=== PATIENT | female | born 1955 | race Caucasian/White ===

== ENCOUNTER 2023-12-23 08:48 | Outpatient (CLI) | payer MEDICARE, OTHER ==
[2023-12-23 10:43] LABS: #Basophils 0.1 10x3/uL (0.0-0.2); #Eosinphils 0.2 10x3/uL (0.0-0.5); #Monocytes 0.9 10x3/uL (0.0-1.1); #Neutrophils 5.4 10x3/uL (1.5-8.4); %Basophils 0.9 % (0.0-2.0); %Eosinophils 2.3 % (0.0-6.0); %Lymphocytes 23.3 % (18.0-47.0); %Neutrophils 63.3 % (40.0-75.0); Hematocrit 45.5 % (34.9-44.5); Hemoglobin 15.5 g/dL (12.0-15.5); Mean Corpuscular HGB CONC 34.1 g/dL (32.0-36.0); Mean Corpuscular Hemoglobin 29.6 pg (27.0-33.0); Mean Platelet Volume 9.9 fl (7.4-10.4); Platelet Count 236 10x3/uL (150-450); RBC Distribution Width 13.5 % (11.5-14.5); Red Blood Cell (RBC) Count 5.23 10x6/uL (3.90-5.03); White Blood Cell (WBC) Count 8.5 10x3/uL (3.5-10.5)
[2023-12-23 11:01] LABS: Prothrombin Time 10.6 sec (9.5-12.1)
[2023-12-23 11:23] LABS: Anion Gap 16 mmol/L (10-20); BUN (Urea Nitrogen) 19 mg/dL (9.8-20.1); Calc. Creatinine Clearance 0 mL/min (70-130); Calcium 9.6 mg/dL (7.8-10.44); Carbon Dioxide 23 mmol/L (23-31); Chloride 105 mmol/L (98-107); Estimated GFR 85; Glucose 90 mg/dL (80-115); Potassium 4.5 mmol/L (3.5-5.1); Sodium 139 mmol/L (136-145)
== END 2023-12-23 08:49 | disposition home or self-care (01) ==
LOC: LABBT 08:48
PROVIDERS: ATTEND Orthopaedic Surgery
DX: Z01.818 Encounter for other preprocedural examination (principal); M16.11 Unilateral primary osteoarthritis, right hip; Z96.641 Presence of right artificial hip joint
CPT/HCPCS: 80048; 85025; 85610; 87081; 93005; 93010

== ENCOUNTER 2023-12-28 07:57 | Observation (INO) | payer MEDICARE, OTHER ==
[2023-12-23 09:08] VITALS: BMI 37.3
[2023-12-28] MEDS ORDERED: Sodium Chloride 0.9% 100 ML ONE ×2 (08:24→10:59)
[2023-12-28] MEDS ORDERED: Tranexamic Acid 1,000 MG/10 ML VIAL ONE (08:24)
[2023-12-28] MEDS ORDERED: Vancomycin (BATCH) 1.5 GM/300 ML BAG ONE (09:04)
[2023-12-28] MEDS ORDERED: PROPOFOL 40 ML ONE (09:07)
[2023-12-28] MEDS ORDERED: Midazolam HCl 2 mg/2 ml Vial ONE ×3 (09:30→12:37)
[2023-12-28] MEDS ORDERED: Bupivacaine PF 0.5% 30 ML VIAL ONE ×2 (09:30→10:59)
[2023-12-28] MEDS ORDERED: fentaNYL 50 mcg/mL 1 mL Vial ONE ×3 (09:30→12:35)
[2023-12-28] MEDS ORDERED: diphenhydrAMINE 25 MG CAP PO PRN (10:38)
[2023-12-28] MEDS ORDERED: fentaNYL 50 mcg/mL 1 mL Vial SLOW IVP PRN (10:38)
[2023-12-28] MEDS ORDERED: Promethazine HCl 25 MG/ML VIAL IM PRN ×2 (10:38→12:14)
[2023-12-28] MEDS ORDERED: Zolpidem Tartrate 5 MG TAB PO PRN (10:38)
[2023-12-28] MEDS ORDERED: Acetaminophen 325 MG TAB PO PRN (10:38)
[2023-12-28] MEDS ORDERED: Propofol 500 MG/50 ML VIAL ONE (10:41)
[2023-12-28] MEDS ORDERED: CEFAZOLIN 2 GM VIAL ONE (10:59)
[2023-12-28] MEDS ORDERED: Ondansetron HCl/PF 4 MG/2 ML Vial IVP PRN (12:14)
[2023-12-28] MEDS ORDERED: Ketorolac Tromethamine 30 MG (1 mL) VIAL ONE (13:24)
[2023-12-28] MEDS: Ketorolac Tromethamine 30 MG (1 mL) VIAL IVP SCH (13:42)
[2023-12-28] MEDS: Sodium Chloride 0.9% 1,000 ML IV SCH (15:06)
[2023-12-28] MEDS: Ondansetron PF 4 MG/2 ML Vial IVP PRN (16:59)
[2023-12-28] MEDS: CEFAZOLIN 2 GM in Sodium Chloride 0.9% 100 ML IVPB SCH (18:06)
[2023-12-28] MEDS: Aspirin 81 mg Enteric Coated Tablet PO SCH (20:02)
[2023-12-28] MEDS: traMADol HCl 50 MG TAB PO PRN (20:02)
[2023-12-28] MEDS: Senokot S 8.6-50 MG TAB PO SCH (20:02)
[2023-12-28] MEDS: Ferrous Gluconate 324 MG TAB PO SCH (20:02)
[2023-12-29 04:54] VITALS: BP 118/73; TEMP 98.1
[2023-12-29 05:02] LABS: Hematocrit 39.2 % (36.0-47.0); Hemoglobin 13.2 g/dL (12.0-16.0); Mean Corpuscular HGB CONC 33.7 g/dL (32.0-36.0); Mean Corpuscular Hemoglobin 29.9 pg (27.0-31.0); Mean Corpuscular Volume 88.7 fl (78.0-98.0); Mean Platelet Volume 9.9 fL (7.4-10.4); Platelet Count 188 10x3/uL (130-400); RBC Distribution Width 13.5 % (11.5-14.5); Red Blood Cell (RBC) Count 4.42 mill/uL (4.20-5.40); White Blood Cell (WBC) Count 9.7 10x3/uL (4.8-10.8)
[2023-12-29] MEDS: Multivitamin W/ Minerals 1 TAB PO SCH (08:27)
[2023-12-29] MEDS: traMADol HCl 50 MG TAB PO PRN (08:27)
[2023-12-29] MEDS: Cholecalciferol 1,000 UNITS (25 MCG) TAB PO SCH (08:27)
[2023-12-29] MEDS ORDERED: Cholecalciferol 1,000 UNITS (25 MCG) TAB PO SCH (09:00)
== END 2023-12-29 11:36 | disposition home or self-care (01) ==
LOC: SDC 07:57 → SURG A 15:43
PROVIDERS: ADMIT Orthopaedic Surgery; ATTEND Orthopaedic Surgery
PROC: 0SR90JZ Replacement of Right Hip Joint with Synthetic Substitute, Open Approach (ICD-10-PCS; principal; 2023-12-28)
DX: M16.11 Unilateral primary osteoarthritis, right hip (principal); Z88.5 Allergy status to narcotic agent; Z91.02 Food additives allergy status
CPT/HCPCS: 27130; 73502; 85027; 97110; 97116; 97530 ×2; 97535; C1776; J3010; J3370; 36415; J0665; J1885; J2250; J2405; J2704; J3490